=== PATIENT | female | born 1955 | race Caucasian/White ===

== ENCOUNTER 2016-08-11 06:07 | Inpatient (IN) | payer OTHER ==
[2016-08-08 16:16] LABS: ASPARTATE AMINO TRANSFERASE 23 U/L (15-37); BLOOD UREA NITROGEN 20 mg/dL (7-18)
[~2016-08-11] VITALS: Ht 162.6 cm; Wt 62.1 kg
[~2016-08-11 06:07] MED LIST: ATOR20TA PO; PANT40TA5 PO; ZOLP10TA5 PO
[2016-08-11] MEDS ORDERED: MIDAZOLAM 1 MG/ML, 2ML ONE (06:39)
[2016-08-11] MEDS ORDERED: FENTANYL PF 250 MCG/5ML ONE (06:39)
[2016-08-11] MEDS ORDERED: BUPIVACAINE/PF 0.5% ONE (07:06)
[2016-08-11] MEDS ORDERED: INDOCYANINE GREEN 25 MG VIAL ONE (07:06)
[2016-08-11] MEDS ORDERED: LACTATED RINGERS 1,000 ML IV SCH (07:08)
[2016-08-11 07:09] VITALS: BP 144/79
[2016-08-11] MEDS ORDERED: ONDANSETRON 2MG/ML, 2ML IVPush PRN (07:30)
[2016-08-11] MEDS ORDERED: LABETALOL 5MG/ML, 20ML IV PRN (07:30)
[2016-08-11] MEDS ORDERED: PROMETHAZINE 25 MG/ML, 1ML IV PRN (07:30)
[2016-08-11] MEDS ORDERED: MEPERIDINE/PF 25MG/0.5ML IVPush PRN (07:30)
[2016-08-11] MEDS ORDERED: hydrALAzine 20 MG/ML, 1ML IV PRN (07:30)
[2016-08-11] MEDS ORDERED: ACETAMINOPHEN 325 MG TABLET PO PRN (07:30)
[2016-08-11] MEDS ORDERED: HYDROmorphone 1 MG/ML, 1ML IV PRN ×3 (07:30→12:30)
[2016-08-11] MEDS ORDERED: DEXAMETHASONE 4 MG/ML, 5ML ONE (07:31)
[2016-08-11] MEDS ORDERED: ROCURONIUM 10 MG/ML ONE (07:31)
[2016-08-11] MEDS ORDERED: NEOSTIGMINE 1 MG/ML, 10ML ONE (07:31)
[2016-08-11] MEDS ORDERED: CEFOTETAN 2 GM ONE (07:31)
[2016-08-11] MEDS ORDERED: ONDANSETRON 2MG/ML, 2ML ONE ×2 (07:31→10:05)
[2016-08-11] MEDS ORDERED: PHENYLEPHRINE 10 MG/ML ONE (07:31)
[2016-08-11] MEDS ORDERED: GLYCOPYRROLATE 0.2MG/1ML ONE (07:31)
[2016-08-11] MEDS ORDERED: PROPOFOL 10 MG/ML, 20ML ONE (07:31)
[2016-08-11] MEDS ORDERED: HYDROmorphone 2 MG/ML, 1ML ONE (10:05)
[2016-08-11] MEDS ORDERED: ACETAMINOPHEN 650 MG/20.3 ML UDC ONE (10:05)
[2016-08-11] MEDS ORDERED: FENTANYL PF 100 MCG/2ML ONE (10:06)
[2016-08-11] MEDS ORDERED: OXYcodone 5 MG/5 ML ORAL.SOL UDC ONE (10:06)
[2016-08-11] MEDS: OXYcodone 5 MG/5 ML ORAL.SOL UDC PO PRN ×2 (10:20→22:08)
[2016-08-11] MEDS: FENTANYL PF 100 MCG/2ML IV PRN ×2 (10:20→10:40)
[2016-08-11] MEDS ORDERED: OXYcodone 5 MG/5 ML ORAL.SOL UDC PO PRN (12:30)
[2016-08-11] MEDS ORDERED: DIPHENHYDRAMINE 25 MG CAPSULE PO PRN (12:30)
[2016-08-11] MEDS ORDERED: LORazepam 2 MG/ML, 1ML IV PRN (12:30)
[2016-08-11] MEDS ORDERED: DIPHENHYDRAMINE 50 MG/ML, 1ML IV PRN (12:30)
[2016-08-11] MEDS ORDERED: LORazepam 1MG TABLET PO PRN (12:30)
[2016-08-11] MEDS: ACETAMINOPHEN 500 MG TABLET PO SCH ×2 (13:28→19:47)
[2016-08-11] MEDS: POTASSIUM CHLORIDE 20 MEQ in D5%-0.45% NACL 1,000 ML IV SCH (13:28)
[2016-08-11] MEDS: FAMOTIDINE 20 MG TABLET PO SCH (13:28)
[2016-08-11 13:50] VITALS: BP 104/64
[2016-08-11] MEDS: KETOROLAC 30 MG/1 ML IV PRN (14:59)
[2016-08-11] MEDS: CEFOTETAN PMX 2GM/50ML 50 ML IVPB SCH (19:47)
[2016-08-11 20:30] VITALS: BP 160/77
[2016-08-11 21:00] VITALS: BP 101/58
[2016-08-11] MEDS: ZOLPIDEM 10MG TABLET PO SCH (21:00)
[2016-08-11] MEDS: ATORVASTATIN 20 MG TABLET PO SCH (22:08)
[2016-08-12 00:16] VITALS: BP 92/55
[2016-08-12] MEDS: ACETAMINOPHEN 500 MG TABLET PO SCH ×4 (01:22→22:05)
[2016-08-12] MEDS: FAMOTIDINE 20 MG TABLET PO SCH ×2 (01:22→13:33)
[2016-08-12 04:23] VITALS: BP 93/49
[2016-08-12 04:59] LABS: BLOOD UREA NITROGEN 18 mg/dL (7-18)
[2016-08-12] MEDS: ENOXAPARIN 40 MG/0.4 ML SQ SCH (05:07)
[2016-08-12] MEDS: KETOROLAC 30 MG/1 ML IV PRN ×2 (05:30→18:33)
[2016-08-12 08:00] VITALS: BP 90/44
[2016-08-12] MEDS: CEFOTETAN PMX 2GM/50ML 50 ML IVPB SCH (08:28)
[2016-08-12] MEDS: POTASSIUM CHLORIDE 20 MEQ in D5%-0.45% NACL 1,000 ML IV SCH (08:35)
[2016-08-12 13:56] VITALS: BP 93/53
[2016-08-12 19:15] VITALS: BP 116/69
[2016-08-12] MEDS: ATORVASTATIN 20 MG TABLET PO SCH (22:05)
[2016-08-12] MEDS: ZOLPIDEM 10MG TABLET PO SCH (22:05)
[2016-08-13] MEDS: FAMOTIDINE 20 MG TABLET PO SCH (01:30)
[2016-08-13] MEDS: ACETAMINOPHEN 500 MG TABLET PO SCH ×2 (01:30→09:07)
[2016-08-13 03:42] VITALS: BP 101/60
[2016-08-13] MEDS: POTASSIUM CHLORIDE 20 MEQ in D5%-0.45% NACL 1,000 ML IV SCH (05:16)
[2016-08-13] MEDS: ENOXAPARIN 40 MG/0.4 ML SQ SCH (05:18)
[2016-08-13 05:54] LABS: BLOOD UREA NITROGEN 13 mg/dL (7-18)
[2016-08-13 07:43] VITALS: BP 116/70
[2016-08-13] MEDS ORDERED: OXYC-302 PO (10:37)
== END 2016-08-13 11:21 | disposition home or self-care (01) | DRG 331 ==
LOC: ORIP 06:07 → 4NOR 11:59
PROVIDERS: ADMIT Surgery; ATTEND Surgery
PROC: 0DTM4ZZ Resection of Descending Colon, Percutaneous Endoscopic Approach (ICD-10-PCS; 2016-08-11)
PROC: 8E0W4CZ Robotic Assisted Procedure of Trunk Region, Percutaneous Endoscopic Approach (ICD-10-PCS; principal; 2016-08-11 07:30)
DX: K57.32 Diverticulitis of large intestine without perforation or abscess without bleeding (principal); E78.00 Pure hypercholesterolemia, unspecified; Z88.0 Allergy status to penicillin; Z80.9 Family history of malignant neoplasm, unspecified
CPT/HCPCS: 36415; 71020; 80048; 80053; 85025; 86850; 86900; 88309; 93005; J1100; J1650; J1885; J2250; J2405; J2704; J2710; J3010; J3480; J3490; J2370; J7120; S0074